=== PATIENT | female | born 1955 | race Caucasian/White ===

== ENCOUNTER → 2022-06-28 | Day surgery (SDC) | payer MEDICARE, OTHER ==
[~2022-06-28] MED LIST: BUPIVACAIN-EPI 0.25%-1:200,000 30 ML VIAL SQ ONE; DEXAMETHASONE SOD PHOSPHATE 4 MG/ML 1 ML VIAL IV ONE; GLYCOPYRROLATE 0.2 MG/ML 2 ML VIAL ONE; HEPARIN SODIUM,PORCINE/PF 5,000 UNIT/0.5 ML SYRINGE SQ ONE; HYDROmorphone (PF) 1 MG/ML ONE; HYDROmorphone 0.5 MG/0.5 ML SYRINGE IVP PRN; KETOROLAC 15 MG/ML 1 ML VIAL ONE; LACTATED RINGERS 1,000 ML IV ONE; LACTATED RINGERS 1,000 ML IV SCH; LIDOCAINE 2% INJ 20 MG/ML (2 ML VIAL) ONE; MIDAZOLAM 2 MG/2 ML VIAL IV PRN; MIDAZOLAM 2 MG/2 ML VIAL ONE; NALOXONE 0.4 MG/ML 1 ML VIAL IV PRN; NEOSTIGMINE 1 MG/ML 10 ML VIAL ONE; ONDANSETRON 4 MG/2 ML VIAL IVP ONE; PROPOFOL 10 MG/ML 20 ML VIAL IV ONE; ROCURONIUM 10 MG/ML (5 ML VIAL) IV ONE; SUCCINYLCHOLINE CHLORIDE 200 MG/10 ML VIAL IV ONE; traMADol 50 MG TAB PO PRN
[2022-06-28 07:47] VITALS: TEMP 97.1
--- NOTE | 2022-06-28 08:05 | P.GSHP ---
History of Present Illness H&P Date: 06/28/22 Chief Complaint: Morbid obesity, band intolerance Patient presents today for laparoscopic band removal. Patient had a lap band placed in 2004. Patient has done well with her weight loss although states recently its more related to her involvement in a food addiction support group. She has had increased heartburn recently. Mild dysphagia at times. She would like to be and removed for that reason. She had a recent EGD in [place] that showed esophagitis without obvious prolapse or erosion. Past Medical History Past Medical History: GERD/Reflux, Thyroid Disorder History of Any Multi-Drug Resistant Organisms: None Reported Past Surgical History: Bariatric Surgery, Breast Surgery, Cholecystectomy, Joint Replacement, Orthopedic Surgery Additional Past Surgical History / Comment(s): lap band 2004. bilateral rotator cuff surgery. bilateral knee replacement. septaplasty. breast reduction. bilateral carpal tunnel surgery Past Anesthesia/Blood Transfusion Reactions: No Reported Reaction Smoking Status: Former smoker - Past Family History Father Family Medical History: No Reported History Additional Family Medical History / Comment(s): pt is adpoted Mother History Unknown: Yes Additional Family Medical History / Comment(s): pt is adopted Medications and Allergies Home Medications Medication Instructions Recorded Confirmed Type Ascorbic Acid [Vitamin C] 500 mg PO DAILY 05/27/22 06/28/22 History Atomoxetine HCl [Strattera] 40 mg PO DAILY 05/27/22 06/28/22 History Biotin 5 mg PO DAILY 05/27/22 06/28/22 History Cholecalciferol [Vitamin D3 (10 1 tab PO DAILY 05/27/22 06/28/22 History Mcg = 400 Iu)] Esomeprazole Magnesium [NexIUM] 40 mg PO DAILY 05/27/22 06/28/22 History Levothyroxine Sodium [Synthroid] 150 mcg PO DAILY 05/27/22 06/28/22 History [place]-3 Fatty Acids [[place]-3] 1 tab PO DAILY 05/27/22 06/28/22 History Zinc 50 mg PO DAILY 05/27/22 06/28/22 History Cetirizine HCl [Zyrtec] 10 mg PO BID 06/24/22 06/28/22 History Famotidine [Pepcid] 20 mg PO HS 06/24/22 06/28/22 History Phenylephrine HCl [Sudafed PE] 10 mg PO BID PRN 06/28/22 06/28/22 History Allergies Allergy/AdvReac Type Severity Reaction Status Date / Time midazolam [From Versed] AdvReac Unknown Verified 06/28/22 07:50 povidone-iodine AdvReac Rash/Hives Verified 06/28/22 07:37 [From Betadine] Surgical - Exam Vital Signs Temp Pulse Resp BP Pulse Ox 97.1 F L 64 16 126/79 100 06/28/22 07:30 06/28/22 07:30 06/28/22 07:30 06/28/22 07:30 06/28/22 07:30 Physical exam: General: Well-developed, well-nourished HEENT: Normocephalic, sclerae nonicteric Abdomen: Nontender, nondistended Extremities: No edema Neuro: Alert and oriented Assessment and Plan (1) Dysphagia Narrative/Plan: 67 row female with history of obesity and recurrent symptoms of dysphagia and reflux. We'll proceed with laparoscopic lap band removal. Risks of bleeding, infection, scarring, gastric injury, bowel injury, conversion to an open procedure, persistent dysphagia and reflux reviewed. She understands and wishes to proceed. Current Visit: No Status: Acute Code(s): R13.10 - DYSPHAGIA, UNSPECIFIED SNOMED Code(s): 14929749
[2022-06-28 10:16] VITALS: RESP 18
--- NOTE | 2022-06-28 10:16 | P.OP ---
Date of Procedure: 06/28/22 Procedure(s) Performed: PREOPERATIVE DIAGNOSIS: Band intolerance/abdominal pain/dysphagia POSTOPERATIVE DIAGNOSIS: Same PROCEDURE: Laparoscopic lap band removal SURGEON: Skyla EBL: 20 mL ANESTHESIA: General COMPLICATIONS: None OPERATIVE PROCEDURE: The patient was brought and placed on the operating room ta [facility] in the supine position. The patient was placed under general anesthesia at that time. The patient was then placed in lithotomy. The abdomen was prepped and draped in the usual sterile fashion. The previous port incision was localized and then incised using a scalpel. The port was easily excised using electrocautery. Entrance into the peritoneal cavity occurred using a 5 mm optical trocar through the old trocar entrance site. Insufflation took place to 15 mmHg. A right subxiphoid 5 mm trocar was placed. This was then removed and the medium Flakito hook was used to elevate the left lobe of the liver anteriorly. An additional 5 mm trocar was placed under direct visualization in the left lateral upper quadrant. The original 5 mm trocar was switched to a 15 mm trocar. A additional 5 mm trocar was placed in the right upper quadrant under direct dilatation. There were adhesions to the band in the buccal that were lysed using electrocautery. The band was then cut using the laparoscopic mandy. The band was then removed easily in 2 portions through the 15 mm trocar site. The stomach itself was inspected and revealed no evidence of erosion or prolapse. The trochars were removed. The fascia at the 15 mm site was closed using a [id number] 0 Vicryl stitch. The subcutaneous tissues at the port site was closed using a 3-0 Vicryl suture. The skin at all 4 incision sites were closed using 4-0 Monocryl sutures. Skin glue was then applied. DISPOSITION: Stable to recovery room
[2022-06-28 11:06] VITALS: BP 148/78; PULSE 78
== END ==
LOC: OR 07:15
PROVIDERS: ATTEND Surgery
DX: K95.09 Other complications of gastric band procedure (principal); E66.01 Morbid (severe) obesity due to excess calories; K21.9 Gastro-esophageal reflux disease without esophagitis; E07.9 Disorder of thyroid, unspecified; Z98.84 Bariatric surgery status; Z90.49 Acquired absence of other specified parts of digestive tract; Z96.653 Presence of artificial knee joint, bilateral; Z98.890 Other specified postprocedural states; Z87.891 Personal history of nicotine dependence; Z79.899 Other long term (current) drug therapy; Z91.041 Radiographic dye allergy status; Z68.27 Body mass index [BMI] 27.0-27.9, adult
CPT/HCPCS: 43772; J2250; J0330; J1100; J2710; J0690; J2405; J1170 ×2; J1885; J2704; J1644; J2001

== ENCOUNTER → 2022-07-06 | Outpatient (CLI) | payer MEDICARE, OTHER ==
--- NOTE | 2022-07-06 13:28 | P.BASOAP ---
Subjective Progress Note Date: 07/06/22 Principal diagnosis: Morbid obesity Patient and I spoke by phone this afternoon after her lap band removal 1-2 weeks ago. Doing well at this time. Her dysphagia and reflux have resolved. Only mild pain at her port sites. No fevers. Objective - Exam Deferred Assessment/Plan (1) Dysphagia Narrative/Plan: Patient doing well after recent lap band removal. Continue light lifting for 1- 2 more weeks. Monitor incision sites. Follow-up as needed. Plan: Date: Initial Weight: Initial BMI: Current Weight: Current BMI: Type of Surgery: Total Volume in Band: Previous Volume: Volume Removed: Volume Added: Band Size:
== END ==
LOC: BARWHC3 13:30
PROVIDERS: ATTEND Surgery
DX: Z88.8 Allergy status to other drugs, medicaments and biological substances (principal)
CPT/HCPCS: 99211